=== PATIENT | male | born 1960 | race Caucasian/White ===

== ENCOUNTER 2016-06-05 15:54 | Emergency (ER) | payer OTHER ==
[~2016-06-05] VITALS: Ht 188 cm; Wt 107.8 kg
[~2016-06-05 15:54] MED LIST: ACTOPLUS MET1 TABLE1 PO; ACTOPLUS MET1 TABLET PO; ALTACE5 MG PO; ASPIR 8181 M1 PO; ATORVASTATIN CA20 MG PO; CENTRUM SILVER1 EAC3 PO; CO Q-10200 MG PO; CO Q-10400 MG PO; COENZYME Q10200 M2 PO; COMPAZINE10 MG PO; COQ-10100 MG PO; FENOFIBRATE134 M1 PO; HUMALOG100 UNIT/2 SC; IBUPROFEN800 MG PO; LEVEMIR FL100 UNIT/1 SC; LEVEMIR FL100 UNITS/ SC; LIPITOR20 MG PO; LO-DOSE ASPIRIN81 M1 PO; LOFIBRA134 MG PO; LOFIBRA67 MG PO; LOVAZA1 GM PO; METFORMIN HCL850 MG PO; MOTRIN800 MG PO; ONE DAILY FOR1 EACH PO; PIOGLITAZONE-M1 EAC1 PO; PRILOSEC20 MG PO; ST. JOSEPH ASPI81 MG PO; TYLENOL EXTRA500 MG PO; VITAMIN D2000 INTUN PO; VITAMIN D32000 UNI1 PO; VITAMIN D32000 UNIT PO; ZANTAC150 MG PO
[2016-06-05 16:36] LABS: HEMATOCRIT 43.4 % (38.0-50.0); MCH 30.6 PG (29.0-34.0); MCHC 34.8 G/DL (30.0-36.0); PLATELET COUNT 150 K/uL (156-360); RBC DIS.WIDTH-CV 13.2 % (11.8-14.6); RBC DIS.WIDTH-SD 41.4 % (39-53); RED BLOOD COUNT 4.93 M/uL (4.00-5.50); WHITE BLOOD COUNT 15.4 K/uL (4.1-10.2)
[2016-06-05 16:41] LABS: CHLORIDE 106 mEq/L (99-109); POTASSIUM 4.8 mEq/L (3.7-5.4); SODIUM 138 mEq/L (136-147)
[2016-06-05 16:42] LABS: GLUCOSE 173 mg/dL (70-99)
[2016-06-05 16:44] LABS: ANION GAP 10 MEQ/L (2-14)
[2016-06-05 16:46] LABS: GFR ESTIMATE (CALCULATED) > 59 mL/min/
[2016-06-05 16:47] LABS: UREA NITROGEN (BUN) 10 mg/dL (9-23)
[2016-06-05 16:55] LABS: TROP-I INTERPRETATION NEGATIVE; TROPONIN-I 0.01 ng/mL (0.0-0.30)
[2016-06-05 18:56] VITALS: BP 132/77
== END 2016-06-05 18:57 | disposition short-term general hospital (02) ==
LOC: EME 15:54
DX: I87.1 Compression of vein (principal); C34.90 Malignant neoplasm of unspecified part of unspecified bronchus or lung; I10 Essential (primary) hypertension; E78.5 Hyperlipidemia, unspecified; E11.9 Type 2 diabetes mellitus without complications; Z79.4 Long term (current) use of insulin; F17.200 Nicotine dependence, unspecified, uncomplicated
CPT/HCPCS: 80048; 84484; 85027; 93005; 99281; 99285

== ENCOUNTER 2016-06-18 17:14 | Emergency (ER) | payer OTHER ==
[~2016-06-18] VITALS: Ht 188 cm; Wt 101.8 kg
[2016-06-18 17:37] LABS: CREATININE 0.6 mg/dL (0.6-1.3); POTASSIUM 4.2 mEq/L (3.7-5.4)
[2016-06-18 17:40] LABS: HEMATOCRIT 50.9 % (38.0-50.0); MCH 30.1 PG (29.0-34.0); MCHC 33.6 G/DL (30.0-36.0); MCV 89.6 FL (86-99); MEAN PLAT.VOLUME 10.9 uM^3 (9.0-12.4); PLATELET COUNT 182 K/uL (156-360); RBC DIS.WIDTH-CV 12.7 % (11.8-14.6); RBC DIS.WIDTH-SD 42.1 % (39-53); RED BLOOD COUNT 5.68 M/uL (4.00-5.50); WHITE BLOOD COUNT 18.7 K/uL (4.1-10.2)
[2016-06-18 17:45] LABS: CHLORIDE 103 mEq/L (99-109); POTASSIUM 5.1 mEq/L (3.7-5.4); SODIUM 138 mEq/L (136-147)
[2016-06-18 17:47] LABS: GLUCOSE 292 mg/dL (70-99)
[2016-06-18 17:48] LABS: ANION GAP 13 MEQ/L (2-14)
[2016-06-18 17:51] LABS: GFR ESTIMATE (CALCULATED) > 59 mL/min/
[2016-06-18 17:52] LABS: UREA NITROGEN (BUN) 16 mg/dL (9-23)
[2016-06-18 19:13] LABS: ADD MIUA? YES; BILIRUBIN NEGATIVE; BLOOD NEGATIVE; COLOR YELLOW ((YELLOW)); GLUCOSE (STRIP) >=500; KETONES 20; LEUKOCYTES NEGATIVE; NITRITE NEGATIVE; PROTEIN (STRIP) 100; UROBILINOGEN 0.2 MG/DL (0.2-1.0)
[2016-06-18 19:20] LABS: BASE EXCESS -1.3 mEq/L (-3 to +3); BICARBONATE 27.4 mEq/L (22-26); CARBOXY HGB 2.8 % (0-5); COMMENTS - BLOOD GASES A+C+; DEVICE 840; FI02 100 %; MECHANICAL RATE 14 resp/min; METHEMOGLOBIN 0.7 % (0-1.5); MODE AC; PCO2 61 mm Hg (35-45); PO2 50 mm Hg (80-100); SITE RR; TOTAL RESP RATE 14 resp/min; pH 7.26 (7.35-7.45)
[2016-06-18 19:21] LABS: PEEP 5 CM/H20; TIDAL VOLUME 550 ML
[2016-06-18 19:28] LABS: BACTERIA NONE SEEN /HPF; EPITHELIAL CELLS NONE SEEN /HPF; MUCUS 3+ /LPF; RED BLOOD CELLS 15-20 /HPF (0-5); UCUL ADDED? NO; WHITE BLOOD CELLS NONE SEEN /HPF (0-5)
[2016-06-18 19:35] LABS: INTER. NORMALIZED RATIO 1.1; PROTHROMBIN TIME 10.7 (9.2-11.2); PTT 27.3 (25-32)
[2016-06-18 19:40] VITALS: BP 107/68
[2016-06-18 19:42] LABS: SPECIFIC GRAVITY > 1.060 (1.000-1.030)
== END 2016-06-18 20:42 | disposition short-term general hospital (02) ==
LOC: EME 17:14
PROVIDERS: Emergency Medicine
DX: I87.1 Compression of vein (principal); R09.02 Hypoxemia; R60.0 Localized edema; J44.9 Chronic obstructive pulmonary disease, unspecified; E11.9 Type 2 diabetes mellitus without complications; E78.5 Hyperlipidemia, unspecified; I10 Essential (primary) hypertension; K21.9 Gastro-esophageal reflux disease without esophagitis; F17.200 Nicotine dependence, unspecified, uncomplicated
CPT/HCPCS: 36600; 70491; 71010; 71260; 80047; 80048; 81003; 82803; 85027; 85610; 85730; 87070; 87205; 93005; 94002; 94799; 99281; 99285; J1100; J2704

== ENCOUNTER 2016-07-01 15:27 | Inpatient (IN) | payer OTHER ==
[~2016-07-01] VITALS: Ht 188 cm; Wt 110.0 kg
[2016-07-01 16:57] LABS: HEMATOCRIT 35.3 % (38.0-50.0); MCH 30.1 PG (29.0-34.0); MCHC 33.1 G/DL (30.0-36.0); MCV 90.7 FL (86-99); PLATELET COUNT 244 K/uL (156-360); RBC DIS.WIDTH-CV 12.6 % (11.8-14.6); RED BLOOD COUNT 3.89 M/uL (4.00-5.50); WHITE BLOOD COUNT 16.5 K/uL (4.1-10.2)
[2016-07-01 17:05] LABS: CHLORIDE 105 mEq/L (99-109); SODIUM 145 mEq/L (136-147)
[2016-07-01 17:08] LABS: GLUCOSE 121 mg/dL (70-99)
[2016-07-01 17:09] LABS: ANION GAP 11 MEQ/L (2-14); TOTAL BILIRUBIN 0.5 mg/dL (0.0-1.0)
[2016-07-01 17:11] LABS: ALKALINE PHOSPHATASE 60 IU/L (3-129); GFR ESTIMATE (CALCULATED) 18 mL/min/
[2016-07-01 17:12] LABS: UREA NITROGEN (BUN) 26 mg/dL (9-23)
[2016-07-01 17:42] LABS: EOSINOPHIL (%) 1.2 % (0-5); EOSINOPHIL COUNT 0.2 K/uL (0-0.3); HEMATOCRIT 35.3 % (38.0-50.0); IMMATURE GRANULOCYTE (%) 1.3 % (0.0-0.7); IMMATURE GRANULOCYTE COUNT 0.2 K/uL; LYMPHOCYTE COUNT 0.9 K/uL (1.0-2.8); MCH 29.9 PG (29.0-34.0); MCHC 32.9 G/DL (30.0-36.0); MEAN PLAT.VOLUME 10.5 uM^3 (9.0-12.4); MONOCYTE (%) 4.9 % (3-12); MONOCYTE COUNT 0.8 K/uL (0-0.8); PLATELET COUNT 253 K/uL (156-360); RBC DIS.WIDTH-CV 12.5 % (11.8-14.6); RBC DIS.WIDTH-SD 40.9 % (39-53); RED BLOOD COUNT 3.88 M/uL (4.00-5.50); WHITE BLOOD COUNT 16.1 K/uL (4.1-10.2)
[2016-07-01 17:54] LABS: LIPASE 13 U/L (1.0-51.0)
[2016-07-01 18:32] LABS: INTER. NORMALIZED RATIO 1.2; PROTHROMBIN TIME 12.2 (9.2-11.2); PTT 29.2 (25-32)
[2016-07-01] MEDS ORDERED: RENAGEL800 MG PO (19:34)
[2016-07-01] MEDS ORDERED: TAMSULOSIN HCL0.4 MG PO (19:34)
[2016-07-01] MEDS ORDERED: ASPIRIN81 M2 PO (19:34)
[2016-07-01] MEDS ORDERED: AMLODIPINE BESYL5 MG PO (19:35)
[2016-07-01] MEDS ORDERED: RAMIPRIL5 MG PO (19:35)
[2016-07-01] MEDS ORDERED: HUMALOG100 UNIT/2 SC (19:35)
[2016-07-01] MEDS ORDERED: SERTRALINE HCL25 MG PO (19:35)
[2016-07-01] MEDS ORDERED: FENOFIBRATE134 M1 PO (19:35)
[2016-07-01] MEDS ORDERED: ATORVASTATIN CA20 MG PO (19:35)
[2016-07-01] MEDS ORDERED: ELIQUIS5 MG PO (19:35)
[2016-07-01] MEDS ORDERED: LEVEMIR FL100 UNIT/1 SC (19:36)
[2016-07-01 19:45] LABS: ADD MIUA? YES; BILIRUBIN NEGATIVE; BLOOD SMALL; COLOR STRAW ((YELLOW)); GLUCOSE (STRIP) NEGATIVE; KETONES NEGATIVE; LEUKOCYTES NEGATIVE; NITRITE NEGATIVE; PROTEIN (STRIP) NEGATIVE; SPECIFIC GRAVITY 1.005 (1.000-1.030); UROBILINOGEN 0.2 MG/DL (0.2-1.0)
[2016-07-01 21:23] LABS: CASTS NONE SEEN /LPF; EPITHELIAL CELLS NONE SEEN /HPF; MUCUS NONE SEEN /LPF
[2016-07-01 21:24] LABS: BACTERIA RARE /HPF; UCUL ADDED? NO; WHITE BLOOD CELLS 0-5 /HPF (0-5)
[2016-07-01 23:14] VITALS: BP 157/85
== END 2016-07-01 21:49 | disposition short-term general hospital (02) | DRG 644 ==
LOC: EME 15:27 → EDOF 20:49
PROVIDERS: Emergency Medicine
DX: E27.49 Other adrenocortical insufficiency (principal); T45.515A Adverse effect of anticoagulants, initial encounter; N17.9 Acute kidney failure, unspecified; E86.0 Dehydration; D62 Acute posthemorrhagic anemia; R18.8 Other ascites; J90 Pleural effusion, not elsewhere classified; E11.9 Type 2 diabetes mellitus without complications; J44.9 Chronic obstructive pulmonary disease, unspecified; I10 Essential (primary) hypertension; E66.9 Obesity, unspecified; E78.5 Hyperlipidemia, unspecified; F17.200 Nicotine dependence, unspecified, uncomplicated; Z79.01 Long term (current) use of anticoagulants; Z86.718 Personal history of other venous thrombosis and embolism; Z85.72 Personal history of non-Hodgkin lymphomas; Z68.31 Body mass index [BMI] 31.0-31.9, adult
CPT/HCPCS: 74176; 80053; 81003; 83605; 83690; 85025; 85025 91; 85027; 85610; 85730; 99281; 99285; J2405; J7030; S0028

== ENCOUNTER 2016-07-12 16:55 | Inpatient (IN) | payer OTHER ==
[~2016-07-12] VITALS: Ht 188 cm; Wt 95.5 kg
[~2016-07-12 16:55] MED LIST changes: +AMLODIPINE BESYL5 MG PO; +ASPIRIN81 M2 PO; +ELIQUIS5 MG PO; +RAMIPRIL5 MG PO; +RENAGEL800 MG PO; +SERTRALINE HCL25 MG PO; +TAMSULOSIN HCL0.4 MG PO
[2016-07-12 17:59] LABS: ADD MIUA? YES; BILIRUBIN NEGATIVE; BLOOD NEGATIVE; COLOR YELLOW ((YELLOW)); GLUCOSE (STRIP) 150; KETONES NEGATIVE; LEUKOCYTES TRACE; NITRITE NEGATIVE; PROTEIN (STRIP) 100; SPECIFIC GRAVITY 1.012 (1.000-1.030); UROBILINOGEN 0.2 MG/DL (0.2-1.0)
[2016-07-12 18:14] LABS: HEMATOCRIT 33.7 % (38.0-50.0); MCH 29.5 PG (29.0-34.0); MCHC 33.8 G/DL (30.0-36.0); MCV 87.1 FL (86-99); MEAN PLAT.VOLUME 10.6 uM^3 (9.0-12.4); PLATELET COUNT 199 K/uL (156-360); RBC DIS.WIDTH-CV 12.4 % (11.8-14.6); RBC DIS.WIDTH-SD 39.8 % (39-53); RED BLOOD COUNT 3.87 M/uL (4.00-5.50)
[2016-07-12 18:15] LABS: WHITE BLOOD COUNT 32.2 K/uL (4.1-10.2)
[2016-07-12 18:24] LABS: CHLORIDE 102 mEq/L (99-109); POTASSIUM 4.1 mEq/L (3.7-5.4); SODIUM 139 mEq/L (136-147)
[2016-07-12 18:26] LABS: GLUCOSE 89 mg/dL (70-99)
[2016-07-12 18:27] LABS: ANION GAP 11 MEQ/L (2-14)
[2016-07-12 18:30] LABS: GFR ESTIMATE (CALCULATED) 52 mL/min/
[2016-07-12 18:31] LABS: UREA NITROGEN (BUN) 22 mg/dL (9-23)
[2016-07-12 18:34] LABS: BACTERIA NONE SEEN /HPF; EPITHELIAL CELLS NONE SEEN /HPF; HYALINE CASTS 0-5 /LPF; MUCUS TRACE /LPF; UCUL ADDED? NO
[2016-07-12 19:10] LABS: ABS NEUTROPHIL COUNT 30.1; ANISOCYTOSIS 1+; ATYPICAL LYMPHOCYTE 1.5 %; BAND NEUTROPHILS 3.5 % (0-8.0); EOSINOPHIL ABS CT 0.2; EOSINOPHILS 0.5 % (0-5.0); INSTRUMENT ABS NEUTROPHIL CT 29.4 K/uL; PLAT.SUFFICIENCY ADEQUATE; POIKILOCYTOSIS 1+
[2016-07-12] MEDS ORDERED: VITAMIN D2000 UNI1 PO (21:11)
[2016-07-12] MEDS ORDERED: COQ-10100 MG PO (21:11)
[2016-07-12 23:39] LABS: TOTAL BILIRUBIN 0.4 mg/dL (0.0-1.0)
[2016-07-12 23:40] LABS: ALKALINE PHOSPHATASE 107 IU/L (3-129)
[2016-07-12 23:43] LABS: DIRECT BILIRUBIN 0.2 mg/dL (0.0-0.3)
[2016-07-12 23:44] LABS: LIPASE 14 U/L (1.0-51.0)
[2016-07-13 00:39] LABS: POINT-OF-CARE METER ID UU14174225
[2016-07-13 01:00] VITALS: BP 121/72
[2016-07-13 04:07] VITALS: BP 120/67
[2016-07-13 07:33] LABS: HEMATOCRIT 32.7 % (38.0-50.0); MCH 29.6 PG (29.0-34.0); MCHC 33.3 G/DL (30.0-36.0); MCV 88.9 FL (86-99); MEAN PLAT.VOLUME 11.1 uM^3 (9.0-12.4); PLATELET COUNT 170 K/uL (156-360); RBC DIS.WIDTH-CV 12.6 % (11.8-14.6); RBC DIS.WIDTH-SD 41.1 % (39-53); RED BLOOD COUNT 3.68 M/uL (4.00-5.50)
[2016-07-13 07:34] LABS: WHITE BLOOD COUNT 22.3 K/uL (4.1-10.2)
[2016-07-13 07:43] LABS: ANION GAP 12 MEQ/L (2-14); CHLORIDE 102 MEQ/L (99-109); GFR ESTIMATE (CALCULATED) 52 mL/min/; POTASSIUM 3.6 MEQ/L (3.7-5.4); SAMPLE HEMOLYSIS CHECK 0; SAMPLE ICTERIC CHECK 0; SAMPLE LIPEMIA CHECK 0; SODIUM 141 MEQ/L (136-147); UREA NITROGEN (BUN) 24 mg/dL (9-23)
[2016-07-13 07:46] LABS: GLUCOSE 42 mg/dL (70-99)
[2016-07-13 09:00] VITALS: BP 131/78
[2016-07-13 09:34] LABS: D-DIMER ELISA 3.72 mg/L FEU (< 0.57)
[2016-07-13 17:44] LABS: POINT-OF-CARE METER ID UU14188625
[2016-07-13 19:52] VITALS: BP 127/73
[2016-07-13 23:22] VITALS: BP 111/60
[2016-07-14 07:02] LABS: BASOPHIL COUNT 0.1 K/uL (0-0.1); EOSINOPHIL (%) 0.7 % (0-5); EOSINOPHIL COUNT 0.1 K/uL (0-0.3); HEMATOCRIT 30.3 % (38.0-50.0); IMMATURE GRANULOCYTE (%) 0.8 % (0.0-0.7); IMMATURE GRANULOCYTE COUNT 0.2 K/uL; LYMPHOCYTE COUNT 0.9 K/uL (1.0-2.8); MCH 29.2 PG (29.0-34.0); MCV 88.6 FL (86-99); MEAN PLAT.VOLUME 10.7 uM^3 (9.0-12.4); MONOCYTE COUNT 0.8 K/uL (0-0.8); NEUTROPHIL (%) 89.2 % (45-76); PLATELET COUNT 159 K/uL (156-360); RBC DIS.WIDTH-CV 12.6 % (11.8-14.6); RBC DIS.WIDTH-SD 40.9 % (39-53); RED BLOOD COUNT 3.42 M/uL (4.00-5.50); WHITE BLOOD COUNT 19.1 K/uL (4.1-10.2)
[2016-07-14 07:26] LABS: ANION GAP 9 MEQ/L (2-14); CHLORIDE 105 MEQ/L (99-109); GFR ESTIMATE (CALCULATED) > 59 mL/min/; GLUCOSE 62 mg/dL (70-99); POTASSIUM 4.1 MEQ/L (3.7-5.4); SAMPLE HEMOLYSIS CHECK 0; SAMPLE ICTERIC CHECK 0; SAMPLE LIPEMIA CHECK 0; SODIUM 139 MEQ/L (136-147); UREA NITROGEN (BUN) 20 mg/dL (9-23)
[2016-07-14 08:00] VITALS: BP 127/75
[2016-07-14 12:00] VITALS: BP 136/71
[2016-07-14 16:06] VITALS: BP 136/72
[2016-07-14 20:00] VITALS: BP 144/87
[2016-07-15 00:33] VITALS: BP 157/84
[2016-07-15 03:44] VITALS: BP 126/67
[2016-07-15 07:14] LABS: BASOPHIL COUNT 0.1 K/uL (0-0.1); EOSINOPHIL (%) 0.9 % (0-5); EOSINOPHIL COUNT 0.2 K/uL (0-0.3); HEMATOCRIT 31.4 % (38.0-50.0); IMMATURE GRANULOCYTE (%) 0.6 % (0.0-0.7); IMMATURE GRANULOCYTE COUNT 0.1 K/uL; INSTRUMENT ABS NEUTROPHIL CT 15.2 K/uL; LYMPHOCYTE COUNT 0.9 K/uL (1.0-2.8); MCH 29.9 PG (29.0-34.0); MCHC 33.4 G/DL (30.0-36.0); MCV 89.5 FL (86-99); MEAN PLAT.VOLUME 10.5 uM^3 (9.0-12.4); MONOCYTE (%) 3.8 % (3-12); MONOCYTE COUNT 0.6 K/uL (0-0.8); NEUTROPHIL (%) 89.1 % (45-76); NEUTROPHIL COUNT 15.2 K/uL (1.8-6.4); PLATELET COUNT 163 K/uL (156-360); RBC DIS.WIDTH-CV 12.5 % (11.8-14.6); RBC DIS.WIDTH-SD 40.8 % (39-53); RED BLOOD COUNT 3.51 M/uL (4.00-5.50)
[2016-07-15 07:37] LABS: ANION GAP 11 MEQ/L (2-14); CHLORIDE 105 MEQ/L (99-109); GFR ESTIMATE (CALCULATED) > 59 mL/min/; POTASSIUM 4.3 MEQ/L (3.7-5.4); SAMPLE HEMOLYSIS CHECK 0; SAMPLE ICTERIC CHECK 0; SAMPLE LIPEMIA CHECK 0; SODIUM 141 MEQ/L (136-147); UREA NITROGEN (BUN) 18 mg/dL (9-23)
[2016-07-15 07:39] LABS: GLUCOSE 163 mg/dL (70-99)
[2016-07-15 08:13] VITALS: BP 135/82
[2016-07-15 10:31] LABS: Estimated Average Glucose 214 mg/dL (70-123)
[2016-07-15 10:50] LABS: HEMOGLOBIN A1c (GLYCOHEMOGLOB) 9.1 % HGB (Below 5.7)
[2016-07-15 11:57] VITALS: BP 141/75
[2016-07-15 16:07] VITALS: BP 139/80
[2016-07-16 00:22] VITALS: BP 144/88
[2016-07-16 07:24] VITALS: BP 140/90
[2016-07-16 08:02] LABS: HEMATOCRIT 30.4 % (38.0-50.0); MCH 29.2 PG (29.0-34.0); MCHC 33.2 G/DL (30.0-36.0); MCV 87.9 FL (86-99); MEAN PLAT.VOLUME 10.7 uM^3 (9.0-12.4); PLATELET COUNT 182 K/uL (156-360); RBC DIS.WIDTH-CV 12.3 % (11.8-14.6); RBC DIS.WIDTH-SD 39.6 % (39-53); RED BLOOD COUNT 3.46 M/uL (4.00-5.50); WHITE BLOOD COUNT 20.9 K/uL (4.1-10.2)
[2016-07-16 08:29] LABS: ANION GAP 10 MEQ/L (2-14); CHLORIDE 101 MEQ/L (99-109); GFR ESTIMATE (CALCULATED) > 59 mL/min/; GLUCOSE 150 mg/dL (70-99); SAMPLE HEMOLYSIS CHECK 0; SAMPLE ICTERIC CHECK 0; SAMPLE LIPEMIA CHECK 0; SODIUM 138 MEQ/L (136-147); UREA NITROGEN (BUN) 18 mg/dL (9-23)
[2016-07-16 10:57] VITALS: BP 136/78
[2016-07-16] MEDS ORDERED: AMLODIPINE BESYL5 MG PO (15:55)
[2016-07-16] MEDS ORDERED: NAPROXEN500 MG PO (15:55)
[2016-07-16] MEDS ORDERED: DOCUSATE SODIU100 MG PO (15:58)
[2016-07-16] MEDS ORDERED: VANTIN200 MG PO (15:59)
[2016-07-16 16:03] VITALS: BP 146/81
[2016-07-16] MEDS ORDERED: LEVEMIR FL100 UNIT/1 SC (16:43)
[2016-07-16 17:09] LABS: POINT-OF-CARE METER ID UU14188625
== END 2016-07-16 17:38 | disposition home or self-care (01) | DRG 871 ==
LOC: EME 16:55 → EDOF 22:25 → 5SOUTH 22:25
PROVIDERS: Emergency Medicine; Hospitalist; Internal Medicine; Nurse Practitioner Adult Health
DX: A41.9 Sepsis, unspecified organism (principal); J69.0 Pneumonitis due to inhalation of food and vomit; I26.99 Other pulmonary embolism without acute cor pulmonale; N17.9 Acute kidney failure, unspecified; J90 Pleural effusion, not elsewhere classified; C78.1 Secondary malignant neoplasm of mediastinum; C79.71 Secondary malignant neoplasm of right adrenal gland; I87.1 Compression of vein; C34.90 Malignant neoplasm of unspecified part of unspecified bronchus or lung; E11.9 Type 2 diabetes mellitus without complications; I10 Essential (primary) hypertension; L89.899 Pressure ulcer of other site, unspecified stage; E66.9 Obesity, unspecified; E78.5 Hyperlipidemia, unspecified; J44.9 Chronic obstructive pulmonary disease, unspecified; R63.4 Abnormal weight loss; E27.9 Disorder of adrenal gland, unspecified; J39.8 Other specified diseases of upper respiratory tract; D64.9 Anemia, unspecified; F17.210 Nicotine dependence, cigarettes, uncomplicated; M54.6 Pain in thoracic spine; D72.829 Elevated white blood cell count, unspecified; M48.06 Spinal stenosis, lumbar region; Z79.01 Long term (current) use of anticoagulants
CPT/HCPCS: 71020; 71250; 72131; 72148; 74176; 78582; 80048; 80076; 81003; 82948; 83036; 83605; 83690; 85025; 85027; 85379; 87040; 87086; 93306; 99281; 99285; A9540; A9567; J0456; J0692; J0696; J1650; J1815; J1885; J2270; J2405; J7030; J7050

== ENCOUNTER 2016-07-24 15:08 | Inpatient (IN) | payer OTHER ==
[~2016-07-24] VITALS: Ht 188 cm; Wt 94.3 kg
[~2016-07-24 15:08] MED LIST changes: +DOCUSATE SODIU100 MG PO; +NAPROXEN500 MG PO; +VANTIN200 MG PO; +VITAMIN D2000 UNI1 PO
[2016-07-24 16:22] LABS: HEMATOCRIT 31.4 % (38.0-50.0); MCH 29.4 PG (29.0-34.0); MCHC 34.4 G/DL (30.0-36.0); MCV 85.6 FL (86-99); MEAN PLAT.VOLUME 10.2 uM^3 (9.0-12.4); PLATELET COUNT 278 K/uL (156-360); RBC DIS.WIDTH-CV 12.6 % (11.8-14.6); RBC DIS.WIDTH-SD 39.2 % (39-53); RED BLOOD COUNT 3.67 M/uL (4.00-5.50); WHITE BLOOD COUNT 34.9 K/uL (4.1-10.2)
[2016-07-24 16:29] LABS: CHLORIDE 103 mEq/L (99-109); POTASSIUM 4.3 mEq/L (3.7-5.4); SODIUM 138 mEq/L (136-147)
[2016-07-24 16:31] LABS: GLUCOSE 259 mg/dL (70-99)
[2016-07-24 16:33] LABS: ANION GAP 13 MEQ/L (2-14); TOTAL BILIRUBIN 0.5 mg/dL (0.0-1.0)
[2016-07-24 16:35] LABS: ALKALINE PHOSPHATASE 122 IU/L (3-129); GFR ESTIMATE (CALCULATED) > 59 mL/min/
[2016-07-24 16:36] LABS: UREA NITROGEN (BUN) 17 mg/dL (9-23)
[2016-07-24 19:03] LABS: INTER. NORMALIZED RATIO 1.1; PTT 29.6 (25-32)
[2016-07-24] MEDS ORDERED: LEVEMIR FL100 UNIT/1 SC (20:17)
[2016-07-24 22:00] VITALS: BP 113/94
[2016-07-24 23:02] VITALS: BP 113/94
[2016-07-24 23:36] LABS: POINT-OF-CARE METER ID UU13113803
[2016-07-25] VITALS: BP 101/75
[2016-07-25 00:47] LABS: METH RESISTANT S AUREUS PCR NEGATIVE (NEGATIVE)
[2016-07-25 00:49] LABS: PROBE CHECK PASS; SPECIMEN PROCESSING CONTROL PASS
[2016-07-25 01:00] VITALS: BP 98/79
[2016-07-25 01:17] LABS: ADD MIUA? YES; BILIRUBIN NEGATIVE; BLOOD NEGATIVE; COLOR YELLOW ((YELLOW)); GLUCOSE (STRIP) 50; KETONES NEGATIVE; LEUKOCYTES TRACE; NITRITE NEGATIVE; PROTEIN (STRIP) 30; UROBILINOGEN 0.2 MG/DL (0.2-1.0)
[2016-07-25 01:58] LABS: BACTERIA NONE SEEN /HPF; EPITHELIAL CELLS NONE SEEN /HPF; GRANULAR CASTS 0-5 /LPF; HYALINE CASTS 0-5 /LPF; MUCUS TRACE /LPF
[2016-07-25 02:00] VITALS: BP 119/80
[2016-07-25 02:07] LABS: SPECIFIC GRAVITY 1.082 (1.000-1.030)
[2016-07-25 04:00] VITALS: BP 101/59
[2016-07-25 06:00] VITALS: BP 129/82
[2016-07-25 07:07] LABS: MEAN PLAT.VOLUME 10.3 uM^3 (9.0-12.4); PLATELET COUNT 270 K/uL (156-360)
[2016-07-25 07:34] LABS: HEMATOCRIT 31.8 % (38.0-50.0); MCH 29.3 PG (29.0-34.0); MCHC 33.6 G/DL (30.0-36.0); MCV 87.1 FL (86-99); RBC DIS.WIDTH-CV 12.9 % (11.8-14.6); RBC DIS.WIDTH-SD 40.7 % (39-53); RED BLOOD COUNT 3.65 M/uL (4.00-5.50)
[2016-07-25 08:00] VITALS: BP 127/77
[2016-07-25 08:34] LABS: ANION GAP 14 MEQ/L (2-14); CHLORIDE 101 MEQ/L (99-109); GFR ESTIMATE (CALCULATED) > 59 mL/min/; GLUCOSE 289 mg/dL (70-99); POTASSIUM 4.6 MEQ/L (3.7-5.4); SAMPLE HEMOLYSIS CHECK 0; SAMPLE ICTERIC CHECK 0; SAMPLE LIPEMIA CHECK 0; SODIUM 137 MEQ/L (136-147); UREA NITROGEN (BUN) 22 mg/dL (9-23)
== END 2016-07-25 08:27 | disposition short-term general hospital (02) | DRG 176 ==
LOC: EME 15:08 → EDOF 21:22 → 4WEST 22:54
PROVIDERS: Emergency Medicine; Hospitalist
DX: I26.99 Other pulmonary embolism without acute cor pulmonale (principal); I82.210 Acute embolism and thrombosis of superior vena cava; J43.9 Emphysema, unspecified; R00.0 Tachycardia, unspecified; F33.9 Major depressive disorder, recurrent, unspecified; G89.29 Other chronic pain; E78.5 Hyperlipidemia, unspecified; R65.10 Systemic inflammatory response syndrome (SIRS) of non-infectious origin without acute organ dysfunction; K21.9 Gastro-esophageal reflux disease without esophagitis; I87.1 Compression of vein; E11.9 Type 2 diabetes mellitus without complications; I82.611 Acute embolism and thrombosis of superficial veins of right upper extremity; E66.9 Obesity, unspecified; R33.9 Retention of urine, unspecified; I10 Essential (primary) hypertension; C34.81 Malignant neoplasm of overlapping sites of right bronchus and lung; Z79.01 Long term (current) use of anticoagulants; Z68.26 Body mass index [BMI] 26.0-26.9, adult; Z87.891 Personal history of nicotine dependence; Z82.49 Family history of ischemic heart disease and other diseases of the circulatory system
CPT/HCPCS: 70491; 71260; 80048; 80053; 81003; 82948; 83605; 85027; 85610; 85730; 87040; 87641; 93005; 99281; 99285; C1751; J2270; J2405; J7030